=== PATIENT | female | born 2000 | race Caucasian/White ===

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

== ENCOUNTER 2020-09-01 23:44 | Emergency (ER) | payer OTHER ==
[2020-09-01 23:56] VITALS: BP 123/82
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
== END 2020-09-02 00:35 | disposition home or self-care (01) ==
LOC: EDUNIT# → ED 23:44
DX: S60.211A Contusion of right wrist, initial encounter (principal); V48.6XXA Car passenger injured in noncollision transport accident in traffic accident, initial encounter; W22.12XA Striking against or struck by front passenger side automobile airbag, initial encounter; Y93.89 Activity, other specified
CPT/HCPCS: 99282; 99283

== ENCOUNTER 2021-07-14 08:00 | Outpatient (CLI) | payer OTHER | END 2021-07-14 23:59 | LOC: LAB.N 08:00 | PROVIDERS: ATTEND Family Medicine | DX: J02.0 Streptococcal pharyngitis (principal); Z20.822 Contact with and (suspected) exposure to COVID-19 ==

== ENCOUNTER 2022-03-09 13:43 | Emergency (ER) | payer OTHER ==
[2022-03-09 16:13] LABS: BASOPHILS % (AUTO) 0.2 %; EOSINOPHILS % (AUTO) 0.7 %; HCT - HEMATOCRIT 40.1 % (37.0-47.0); HGB - HEMOGLOBIN 13.6 g/dL (12.0-16.0); LYMPHOCYTES # (AUTO) 1.3 10^3/uL (1.5-3.5); LYMPHOCYTES % (AUTO) 29.2 %; MEAN CORPUSCULAR HEMOGLOBIN 33.3 pg (27.0-31.0); MEAN CORPUSCULAR HGB CONC 33.9 g/dL (32.0-36.0); MEAN PLATELET VOLUME 9.2 fL (7.9-10.8); MONOCYTES # (AUTO) 0.3 10^3/uL (0.0-1.0); MONOCYTES % (AUTO) 7.6 %; NEUTROPHILS # (AUTO) 2.8 10^3/uL (1.5-6.6); NEUTROPHILS % (AUTO) 62.1 %; PLT - PLATELET COUNT 296 10^3/uL (130-450); RED BLOOD COUNT 4.09 10^6/uL (4.20-5.40); RED CELL DISTRIBUTION WIDTH 11.4 % (12.0-15.0); WHITE BLOOD COUNT 4.5 x10^3/uL (4.8-10.8)
[2022-03-09 16:28] LABS: ALBUMIN 4.8 g/dL (3.2-5.5); ALBUMIN/GLOBULIN RATIO 1.5 (1.0-2.2); BILIRUBIN,TOTAL 0.8 mg/dL (0.2-1.0); CALCIUM 9.8 mg/dL (8.5-10.3); CREATININE 0.8 mg/dL (0.4-1.0); POTASSIUM 4.3 mmol/L (3.5-5.0)
[2022-03-09 16:44] LABS: HCG,QUALITATIVE BLOOD NEGATIVE
--- NOTE | 2022-03-09 17:28 | Ultrasound Report ---
PROCEDURE: Pelvic w/Transvag+Doppler Comp INDICATIONS: pelvic pain, R; DUB TECHNIQUE: Real-time scanning was performed of the pelvic organs, with image documentation. Additional endovagi nal scanning was necessary due to incomplete visualization of the adnexal and endometrial structures by transabdominal scanning. Doppler interrogation was performed of the ovaries bilaterally. COMPARISON: None. FINDINGS: No pathologic free abdominal or pelvic fluid. Uterus: Uterus is normal in size at 8.7 x 3.7 x 5.4 cm. The endometrium measures 4.1 mm in combined thickness. Ovaries: Right ovary measures 2.2 x 2.7 x 3.6 cm with a calculated volume of 11.0 mL. Left ovary miguel ures 3.9 x 2.5 x 2.9 cm with a calculated volume of 14.5 mL. There are greater than 12 follicles in e ach ovary. There is duplex flow in both ovaries. There is a left ovarian cyst measuring 2.9 cm in max imum diameter. Other: No free pelvic fluid. IMPRESSION: 1. No evidence of ovarian torsion. No evidence of acute pelvic process. 2. Findings are greater than 12 cysts in each ovary can support a clinical diagnosis of polycystic ov alex syndrome. Reviewed by: Rafy Horton MD on 03/09/2022 5:26 PM PST Approved by: Rafy Horton MD on 03/09/2022 5:26 PM PST Station ID: [id number]
[2022-03-09 18:51] LABS: BILIRUBIN,URINE NEGATIVE (NEGATIVE); GLUCOSE, URINE (UA) NEGATIVE (NEGATIVE); KETONES,URINE (UA) NEGATIVE (NEGATIVE); LEUKOCYTE ESTERASE, URINE NEGATIVE (NEGATIVE); NITRITE,URINE NEGATIVE (NEGATIVE); OCCULT BLOOD,URINE TRACE-INTA (NEGATIVE); PROTEIN,URINE NEGATIVE (NEGATIVE); UROBILINOGEN,URINE 0.2 (NORMAL) E.U./dL (NORMAL)
[2022-03-09 19:02] LABS: CLARITY,URINE CLEAR (CLEAR)
--- NOTE | 2022-03-09 19:08 | ED Physician Documentation ---
History of Present Illness - Stated complaint Stated Complaint: FEMALE - Chief complaint Chief Complaint: Abd Pain - Additonal information Additional information: 21-year-old female presents emergency department for evaluation of painful and heavy menstrual cycle. She reports that 4 days ago she began bleeding and was passing very large clots over the last 24 hours it has started to improve. She also reports pain is improved she is concerned because she just ended her menstrual cycle on 01 March. She does have Nexplanon in place. She does have a history of irregular cycles and has been told she has ovarian cyst. She also has a history of ovarian torsion. Review of Systems Constitutional: reports: Reviewed and negative Throat: reports: Reviewed and negative Cardiac: reports: Reviewed and negative Respiratory: reports: Reviewed and negative GI: reports: Abdominal Pain : reports: Other (Irregular menses) Skin: reports: Reviewed and negative Musculoskeletal: reports: Reviewed and negative Neurologic: reports: Reviewed and negative PD PAST MEDICAL HISTORY - Past Medical History Cardiovascular: None Respiratory: None Endocrine/Autoimmune: None GI: None : None, Retention, Other HEENT: None Musculoskeletal: None Derm: None - Past Surgical History Past Surgical History: Yes General: Other - Present Medications Home Medications: Ambulatory Orders Medication Instructions Recorded Confirmed Etonogestrel [Nexplanon] 68 mg SQ 10/19/18 - Allergies Allergies/Adverse Reactions: Allergies Allergy/AdvReac Type Severity Reaction Status Date / Time No Known Drug Allergies Allergy Verified 03/09/22 14:37 - Social History Does the pt smoke?: No Smoking Status: Never smoker Does the pt drink ETOH?: No Does the pt have substance abuse?: No - Immunizations Immunizations are current?: Yes - POLST Patient has POLST: Yes PD ED PE NORMAL - General General: Alert and oriented X 3, No acute distress - HEENT HEENT: PERRL - Cardiac Cardiac: RRR, No murmur - Respiratory Respiratory: No respiratory distress - Abdomen Abdomen: Normal bowel sounds - Female Female : Deferred - Back Back: No CVA TTP - Derm Derm: Normal color, Warm and dry, No rash - Extremities Extremities: No deformity, No tenderness to palpate, Normal ROM s pain - Neuro Neuro: Alert and oriented X 3, auto bumper mechanic 2-12 intact Eye Opening: Spontaneous Motor: Obeys Commands Verbal: Oriented GCS Score: 15 Results - Vitals Vitals: Vital Signs - 24 hr 03/09/22 03/09/22 14:31 18:37 Temperature 36.4 C L 36.6 C Heart Rate 87 69 Respiratory 16 12 Rate Blood Pressure 120/78 110/80 O2 Saturation 100 100 Oxygen O2 Source Room air - Labs Labs: Laboratory Tests 03/09/22 03/09/22 03/09/22 15:46 16:03 16:03 WBC 4.5 L RBC 4.09 L Hgb 13.6 Hct 40.1 MCV 98.0 MCH 33.3 H MCHC 33.9 RDW 11.4 L Plt Count 296 MPV 9.2 Neut # (Auto) 2.8 Lymph # (Auto) 1.3 L [place] # (Auto) 0.3 Eos # (Auto) 0.0 Baso # (Auto) 0.0 Absolute Nucleated RBC 0.00 Nucleated RBC % 0.0 Sodium Potassium Chloride Carbon Dioxide Anion Gap BUN Creatinine Estimated GFR (MDRD) Glucose Calcium Total Bilirubin AST ALT Alkaline Phosphatase Total Protein Albumin Globulin Albumin/Globulin Ratio Lipase Serum HCG, Qual Urine Color YELLOW Urine Clarity CLEAR Urine pH 7.0 Ur Specific [place] <=1.005 Urine Protein NEGATIVE Urine Glucose (UA) NEGATIVE Urine Ketones NEGATIVE Urine Occult Blood TRACE-INTA Urine Nitrite NEGATIVE Urine Bilirubin NEGATIVE Urine Urobilinogen 0.2 (NORMAL) Ur Leukocyte Esterase NEGATIVE Ur Microscopic Review NOT INDICATED Urine Culture Comments NOT INDICATED Blood Type A POSITIVE Blood Type Recheck Antibody Screen NEGATIVE 03/09/22 03/09/22 03/09/22 16:03 16:03 17:10 WBC RBC Hgb Hct MCV MCH MCHC RDW Plt Count MPV Neut # (Auto) Lymph # (Auto) [place] # (Auto) Eos # (Auto) Baso # (Auto) Absolute Nucleated RBC Nucleated RBC % Sodium 138 Potassium 4.3 Chloride 103 Carbon Dioxide 29 Anion Gap 6.0 BUN 13 Creatinine 0.8 Estimated GFR (MDRD) 90 Glucose 78 Calcium 9.8 Total Bilirubin 0.8 AST 15 ALT 17 Alkaline Phosphatase 56 Total Protein 8.0 Albumin 4.8 Globulin 3.2 Albumin/Globulin Ratio 1.5 Lipase 37 Serum HCG, Qual NEGATIVE Urine Color Urine Clarity Urine pH Ur Specific [place] Urine Protein Urine Glucose (UA) Urine Ketones Urine Occult Blood Urine Nitrite Urine Bilirubin Urine Urobilinogen Ur Leukocyte Esterase Ur Microscopic Review Urine Culture Comments Blood Type Blood Type Recheck A POSITIVE Antibody Screen - Rads (name of study) pelvic US Radiology: Final report received (No evidence of ovarian torsion. No evidence of acute pelvic process. Findings are greater than 12 cyst on each ovary which supports a clinical diagnosis of PCOS) PD MEDICAL DECISION MAKING - ED course Complexity details: reviewed results, re-evaluated patient, considered differential, d/w patient ED course: 21-year-old female presents to the emergency department for evaluation of irregular menstrual cycle as well as heavy bleeding passing clots and pain. She does have a history of ovarian torsion as well as ovarian cyst but no previous clinical diagnosis of PCOS. She does have Nexplanon in place for contraceptive reasons. 9 here in the emergency department she does have a healthy hemoglobin at 13.6. No thrombocytopenia electrolytes were unremarkable. She is not . Pelvic ultrasound showed no acute torsion however each ovary has more than 12 cysts making this compatible with PCOS. I discussed with the patient that PCOS often results in irregular and heavy menstrual cycles. She will request referral to Fred[facility] from [facility]. It is likely she would benefit from a different OCP then Nexplanon for longer-term management of her symptoms. Clinically no tachycardia fevers near syncope. We did discuss emergent return precautions for concerns of excessive vaginal bleeding. Departure - Departure Disposition: Home, Self Care Clinical Impression: PCOS (polycystic ovarian syndrome), Irregular menstrual cycle Condition: Stable Record reviewed to determine appropriate education?: Yes Instructions: Polycystic Ovary Syndrome Comments: Tawny you are seen today in the emergency department because you began having a menstrual cycle on the however you finished your previous 1 on 01 March. You describes some pain as well as passing heavy clots though that seems to be getting a little better. You do also reported history of an ovarian torsion in the past. Here in the emergency department we checked your CBC and your hemoglobin is very healthy at 13.6. There are no electrolyte abnormalities. We did do a pelvic ultrasound and found that you have more than 12 cyst on each ovary. This supports a clinical diagnosis of PCOS syndrome. It is important that [facility] make an emergent referral for you to gynecology. It is likely that you would benefit from an alternative hormone then Nexplanon in order to help manage your PCOS symptoms. Return to the emergency department if you have sustained vaginal bleeding that does not improve after few weeks, any resting heart rate greater than 120 or any fainting episodes.
[2022-03-09 19:23] VITALS: BP 114/63
== END 2022-03-09 19:23 | disposition home or self-care (01) ==
LOC: ED 13:43
DX: E28.2 Polycystic ovarian syndrome (principal)
CPT/HCPCS: 36415; 80053; 81001; 81003; 83690; 84703; 85025; 86850; 86900; 86901; 87086; 93975; 99284

== ENCOUNTER 2022-05-27 15:37 | Outpatient (CLI) | payer OTHER ==
[2022-05-27 17:54] LABS: BASOPHILS % (AUTO) 0.3 %; EOSINOPHILS % (AUTO) 0.5 %; HCT - HEMATOCRIT 39.2 % (37.0-47.0); HGB - HEMOGLOBIN 13.2 g/dL (12.0-16.0); LYMPHOCYTES % (AUTO) 27.3 %; MEAN CORPUSCULAR HEMOGLOBIN 33.7 pg (27.0-31.0); MEAN CORPUSCULAR HGB CONC 33.7 g/dL (32.0-36.0); MEAN PLATELET VOLUME 9.8 fL (7.9-10.8); MONOCYTES # (AUTO) 0.4 10^3/uL (0.0-1.0); MONOCYTES % (AUTO) 11.6 %; NEUTROPHILS # (AUTO) 2.2 10^3/uL (1.5-6.6); PLT - PLATELET COUNT 301 10^3/uL (130-450); RED BLOOD COUNT 3.92 10^6/uL (4.20-5.40); RED CELL DISTRIBUTION WIDTH 11.7 % (12.0-15.0); WHITE BLOOD COUNT 3.7 x10^3/uL (4.8-10.8)
[2022-05-27 18:20] LABS: % IRON SATURATION 68 % (20-50); ALBUMIN 4.6 g/dL (3.2-5.5); ALBUMIN/GLOBULIN RATIO 1.4 (1.0-2.2); ALKALINE PHOSPHATASE 41 IU/L (42-121); ALT ALANINE AMINOTRANSFERASE 102 IU/L (10-60); AST ASPARTATE AMINOTRANSFERASE 103 IU/L (10-42); BUN - BLOOD UREA NITROGEN 9 mg/dL (6-20); CALCIUM 9.3 mg/dL (8.5-10.3); CARBON DIOXIDE - CO2 23 mmol/L (21-32); CHLORIDE 99 mmol/L (101-111); CREATININE 0.7 mg/dL (0.4-1.0); GFR - MDRD 105 (>89); GLUCOSE 87 mg/dL (70-100); IRON 205 ug/dL (28-170); POTASSIUM 4.6 mmol/L (3.5-5.0); SODIUM 134 mmol/L (135-145); TOTAL IRON BINDING CAPACITY 301 ug/dL (250-450); TOTAL PROTEIN 7.8 g/dL (6.7-8.2); TRANSFERRIN 215 mg/dL (192-382)
[2022-05-27 18:25] LABS: FERRITIN 47.7 ng/mL (11.0-306.8)
[2022-05-27 18:28] LABS: FOLATE 21.85 ng/mL (5.90 - >24.8)
[2022-05-27 18:30] LABS: CRP - C-REACTIVE PROTEIN < 1.0 mg/dL (0-1.0)
[2022-05-27 21:00] LABS: ESTIMATED AVERAGE GLUCOSE 85 mg/dL (70-100); HEMOGLOBIN A1c% 4.6 % (4.27-6.07)
== END 2022-05-27 23:59 | disposition home or self-care (01) ==
LOC: LAB.N 15:37
PROVIDERS: ATTEND Registered Nurse
DX: I99.8 Other disorder of circulatory system (principal); M79.672 Pain in left foot; M79.2 Neuralgia and neuritis, unspecified
CPT/HCPCS: 36415; 80053; 82607; 82728; 82746; 83036; 83540; 84466; 85025; 86140

== ENCOUNTER 2022-07-19 19:10 | Emergency (ER) | payer OTHER ==
[2022-07-19 19:18] VITALS: BP 125/76
--- NOTE | 2022-07-19 19:40 | ED Physician Documentation ---
History of Present Illness - Stated complaint Stated Complaint: CONGESTION/COUGH - Chief complaint Chief Complaint: Heent - History obtained from History obtained from: Patient - Additonal information Additional information: She is been sick for about a week. It started mostly with nasal congestion and a head cold. She went to the [facility] and they prescribed Mucinex and Sudafed and that broke up the nasal congestion but now she has more cough and a burning sensation with coughing, deep breathing, and swallowing. No fevers. No history of asthma or other pulmonary issues. Does not smoke. PD PAST MEDICAL HISTORY - Past Medical History Cardiovascular: None Respiratory: None Endocrine/Autoimmune: None GI: None : None, Retention, Other HEENT: None Musculoskeletal: None Derm: None - Past Surgical History Past Surgical History: Yes General: Other - Present Medications Home Medications: Ambulatory Orders Medication Instructions Recorded Confirmed Etonogestrel [Nexplanon] 68 mg SQ DAILY 10/19/18 Albuterol Sulf [Ventolin Hfa 1 - 2 puffs INH Q4HR PRN #1 each 07/19/22 Inhaler] Benzonatate [Tessalon] 200 mg PO TID PRN #20 cap 07/19/22 - Allergies Allergies/Adverse Reactions: Allergies Allergy/AdvReac Type Severity Reaction Status Date / Time latex Allergy Rash Verified 07/19/22 19:15 - Social History Does the pt smoke?: No Smoking Status: Never smoker Does the pt drink ETOH?: No Does the pt have substance abuse?: No - Immunizations Immunizations are current?: Yes - POLST Patient has POLST: Yes PD ED PE NORMAL - Vitals Vital signs reviewed: Yes - General General: Alert and oriented X 3, No acute distress - HEENT HEENT: Pharynx benign - Neck Neck: Supple, no meningeal sign, No bony TTP - Cardiac Cardiac: RRR, No murmur - Respiratory Respiratory: No respiratory distress, Clear bilaterally - Abdomen Abdomen: Non tender - Psych Psych: Normal mood, Normal affect Results - Vitals Vitals: Vital Signs - 24 hr 07/19/22 19:15 Temperature 36.9 C Heart Rate 78 Respiratory 16 Rate Blood Pressure 125/76 O2 Saturation 100 Oxygen O2 Source Room air - Rads (name of study) 2v cxr Relevant Findings:: Final report received, EMP independent interpretation of test PD Medical Decision Making - ED course ED course: 21-year-old woman had a URI and now has more of a lower respiratory infection but with clear lungs and negative chest x-ray consistent with viral bronchitis. For symptomatic relief she was prescribed Tessalon and albuterol. Departure - Departure Disposition: 01 Home, Self Care Clinical Impression: Viral bronchitis Condition: Good Record reviewed to determine appropriate education?: Yes Instructions: ED Upper Resp Infec No Abx Tx Prescriptions: Albuterol Sulf [Ventolin Hfa Inhaler] 1 - 2 puffs INH Q4HR PRN #1 each PRN Reason: Shortness Of Air/Wheezing Benzonatate [Tessalon] 200 mg PO TID PRN #20 cap PRN Reason: Cough Comments: Call your doctor to arrange a follow-up appointment, make the next available appointment. In the interim, return anytime if worse or if new symptoms develop. Forms: Activity restrictions Discharge Date/Time: 07/19/22 19:49
[2022-07-19] MEDS ORDERED: BENZONATATE 100 MG CAPSULE PO STA (19:43)
--- NOTE | 2022-07-19 19:48 | XRAY Report ---
PROCEDURE: Chest 2 View X-Ray INDICATIONS: cough TECHNIQUE: 2 views of the chest were acquired. COMPARISON: None. FINDINGS: Surgical changes and devices: None. Lungs and pleura: No pleural effusions or pneumothorax. Lungs are clear. Mediastinum: Mediastinal contours are normal. Heart size is normal. Bones and chest wall: No suspicious bony abnormalities. Soft tissues appear unremarkable. IMPRESSION: Clear lungs, without infiltrates. Reviewed by: Carmelo Duncan MD on 07/19/2022 6:47 PM JAYDA Approved by: Carmelo Duncan MD on 07/19/2022 6:47 PM MICHEALDT Station ID: [id number]
== END 2022-07-19 19:49 | disposition home or self-care (01) ==
LOC: ED 19:10
DX: J20.8 Acute bronchitis due to other specified organisms (principal)
CPT/HCPCS: 71046; 99283; A9270

== ENCOUNTER 2022-08-31 07:26 | Emergency (ER) | payer OTHER ==
[2022-08-31 08:01] LABS: BASOPHILS % (AUTO) 0.4 %; EOSINOPHILS # (AUTO) 0.1 10^3/uL (0.0-0.7); EOSINOPHILS % (AUTO) 1.1 %; HCT - HEMATOCRIT 38.7 % (37.0-47.0); HGB - HEMOGLOBIN 12.9 g/dL (12.0-16.0); LYMPHOCYTES # (AUTO) 1.7 10^3/uL (1.5-3.5); LYMPHOCYTES % (AUTO) 37.3 %; MEAN CORPUSCULAR HEMOGLOBIN 33.1 pg (27.0-31.0); MEAN CORPUSCULAR HGB CONC 33.3 g/dL (32.0-36.0); MEAN CORPUSCULAR VOLUME 99.2 fL (81.0-99.0); MEAN PLATELET VOLUME 9.6 fL (7.9-10.8); MONOCYTES # (AUTO) 0.4 10^3/uL (0.0-1.0); MONOCYTES % (AUTO) 9.5 %; NEUTROPHILS # (AUTO) 2.3 10^3/uL (1.5-6.6); NEUTROPHILS % (AUTO) 51.5 %; PLT - PLATELET COUNT 266 10^3/uL (130-450); RED CELL DISTRIBUTION WIDTH 11.6 % (12.0-15.0); WHITE BLOOD COUNT 4.5 x10^3/uL (4.8-10.8)
--- NOTE | 2022-08-31 08:08 | ED Physician Documentation ---
PD HPI ABD PAIN - Stated complaint Stated Complaint: CHEST/STOMACH PX - Chief complaint Chief Complaint: Abd Pain - History obtained from History obtained from: Patient - Additional information Additional information: The patient comes to the emergency department chief complaint of abdominal and chest pain worse after eating. She states that she has also had some nausea. The patient states that she has had the symptoms on and off previously for years but that it seemed a lot worse over the last couple of weeks since she started taking mirtazapine for depression. The patient states that every time she eats, she feels bloated and gets the pain in her upper abdomen and mid chest. She also gets nauseated and states she was up all night vomiting last night after eating dinner. She denies any association with the kind of food eaten and states it seems the same no matter what. The patient denies any fevers or chills. She has not otherwise felt ill. She has no personal history of gallstones but her brother did have his gallbladder removed. She has a longstanding history of GERD but has never had endoscopy. No other abdominal issues that she knows of. She is not known to be . PD PAST MEDICAL HISTORY - Past Medical History Past Medical History: Yes Cardiovascular: None Respiratory: None Endocrine/Autoimmune: None GI: None : None, Retention, Other HEENT: None Musculoskeletal: None Derm: None - Past Surgical History Past Surgical History: Yes General: Other - Present Medications Home Medications: Ambulatory Orders Medication Instructions Recorded Confirmed Etonogestrel [Nexplanon] 68 mg SQ DAILY 10/19/18 Albuterol Sulf [Ventolin Hfa 1 - 2 puffs INH Q4HR PRN #1 each 07/19/22 Inhaler] Benzonatate [Tessalon] 200 mg PO TID PRN #20 cap 07/19/22 Ondansetron Odt [Zofran] 4 mg TL Q6H PRN #10 tablet 08/31/22 - Allergies Allergies/Adverse Reactions: Allergies Allergy/AdvReac Type Severity Reaction Status Date / Time latex Allergy Rash Verified 08/31/22 07:37 - Social History Does the pt smoke?: No Smoking Status: Never smoker Does the pt drink ETOH?: No Does the pt have substance abuse?: No - Immunizations Immunizations are current?: Yes - POLST Patient has POLST: Yes PD ED PE NORMAL - Vitals Vital signs reviewed: Yes - General General: Alert and oriented X 3, No acute distress, Well developed/nourished - HEENT HEENT: Atraumatic, PERRL, EOMI, Moist mucous membranes - Neck Neck: Supple, no meningeal sign - Cardiac Cardiac: RRR, No murmur, Strong equal pulses - Respiratory Respiratory: No respiratory distress, Clear bilaterally - Abdomen Abdomen: Soft, Non distended, Other (He mild diffuse tenderness throughout entire abdomen, no rebound or guarding.) - Derm Derm: Normal color, Warm and dry, No rash - Extremities Extremities: No deformity, No edema - Neuro Neuro: Alert and oriented X 3 - Psych Psych: Normal mood, Normal affect Results - Vitals Vitals: Vital Signs - 24 hr 08/31/22 08/31/22 08/31/22 07:33 09:24 09:30 Temperature 36.2 C L 36.3 C L 36.3 C L Heart Rate 101 H 71 71 Respiratory 20 19 19 Rate Blood Pressure 128/74 113/68 113/62 O2 Saturation 100 100 100 Oxygen O2 Source Room air - Labs Labs: Laboratory Tests 08/31/22 08/31/22 07:45 07:45 WBC 4.5 L RBC 3.90 L Hgb 12.9 Hct 38.7 MCV 99.2 H MCH 33.1 H MCHC 33.3 RDW 11.6 L Plt Count 266 MPV 9.6 Neut # (Auto) 2.3 Lymph # (Auto) 1.7 Wilkinson # (Auto) 0.4 Eos # (Auto) 0.1 Baso # (Auto) 0.0 Absolute Nucleated RBC 0.00 Nucleated RBC % 0.0 Sodium 140 Potassium 3.3 L Chloride 106 Carbon Dioxide 24 Anion Gap 10.0 BUN 12 Creatinine 0.7 Estimated GFR (MDRD) 104 Glucose 110 H Calcium 9.2 Total Bilirubin 0.5 AST 16 ALT 17 Alkaline Phosphatase 47 Total Protein 7.3 Albumin 4.2 Globulin 3.1 Albumin/Globulin Ratio 1.4 Lipase 41 PD Medical Decision Making - ED course Complexity details: reviewed results, re-evaluated patient, considered differential, d/w patient ED course: The patient was worked up with laboratory studies and abdominal ultrasound. CBC and ER abdominal panel were reviewed by me and negative. Pt declined any symptomatic management upon arrival in the emergency department. The patient's work-up was negative for acute findings. We have discussed the need for follow- up and how to manage symptoms at home. We have discussed the usual indications for return. Departure - Departure Disposition: 01 Home, Self Care Clinical Impression: Non-cardiac chest pain Abdominal pain Qualifiers: Abdominal location: generalized Qualified Code(s): R10.84 - Generalized abdominal pain Condition: Stable Instructions: ED Abdominal Pain Female Non-Specific Abdominal Pain, ED Chest Pain Atypical Unkn Cause Prescriptions: Ondansetron Odt [Zofran] 4 mg TL Q6H PRN #10 tablet PRN Reason: Nausea / Vomiting Comments: Your labs look great and your ultrasound does not show any problems with your gallbladder. It is important that you follow-up with primary care to discuss potentially having an endoscopy done for your ongoing gastrointestinal symptoms. You may also request that they refer you to a oracle apex developer for further evaluation. You may take the nausea medication that has been prescribed for you. The prescription for this has been electronically transmitted to the [facility] pharmacy in [place]. Please be sure you drink plenty of fluids. If there is a certain kind or category of food that is more tolerable to, then try to stick with this for now. As far as your mirtazapine, if this really seems to be not agreeing with your system well, then you need to talk to your doctor about having the switch to something else. Please make the next available appointment for follow-up Forms: Activity restrictions Discharge Date/Time: 08/31/22 09:30
[2022-08-31 08:15] LABS: ALBUMIN 4.2 g/dL (3.2-5.5); ALBUMIN/GLOBULIN RATIO 1.4 (1.0-2.2); BILIRUBIN,TOTAL 0.5 mg/dL (0.2-1.0); CALCIUM 9.2 mg/dL (8.5-10.3); CREATININE 0.7 mg/dL (0.4-1.0); POTASSIUM 3.3 mmol/L (3.5-5.0); TOTAL PROTEIN 7.3 g/dL (6.7-8.2)
--- NOTE | 2022-08-31 09:09 | Ultrasound Report ---
PROCEDURE: Abdomen Limited INDICATIONS: upper abd pn, vomiting after eating TECHNIQUE: Real-time focused scanning was performed of the abdomen, with image documentation. COMPARISONS: None. FINDINGS: Liver: Liver is normal in size and increased in echotexture. Gallbladder: No stones are identified. Wall thickness is normal measuring 2.6 mm. Biliary ducts: Intrahepatic bile ducts are non-dilated. Extrahepatic bile duct caliber measures 2.7 mm. Normal is 6-7 mm or less in diameter, or 10 mm or less post-cholecystectomy. Pancreas: Visualized portions of the pancreas are sonographically normal. Right kidney: Normal in size and echotexture. Right kidney measures 11.6 cm long. No hydronephrosis or nephrolithiasis. No solid masses. No complex renal cystic lesions which require follow-up. IMPRESSION: Mild hepatic steatosis. Reviewed by: Daniella Paul MD on 08/31/2022 9:07 AM PDT Approved by: Daniella Paul MD on 08/31/2022 9:07 AM PDT Station ID: [id number]
[2022-08-31 09:31] VITALS: BP 113/62
== END 2022-08-31 09:30 | disposition home or self-care (01) ==
LOC: ED 07:26
DX: R07.89 Other chest pain (principal); R10.84 Generalized abdominal pain
CPT/HCPCS: 36415; 80053; 83690; 85025; 99283; 99284